=== PATIENT | female | born 1955 | race Caucasian/White ===

== ENCOUNTER 2019-08-23 11:37 | Outpatient (CLI) | payer BC ==
--- NOTE | 2019-08-23 15:30 | MRI ---
MRI OF THE RIGHT SHOULDER WITHOUT CONTRAST: INDICATION: Right shoulder pain. COMPARISON: None. FINDINGS: There is a partial thickness articular surface tear involving the cranial subscapularis with medial s ubluxation of the biceps tendon. There is moderate tendinosis of the long head of the biceps tendon. There is a partial thickness articular surface tear involving the mid to anterior supraspinatus at t he footprint measuring 1.8 x 1.8 cm. There is moderate supraspinatus and infraspinatus tendinosis. T here is a small focus of intertendinus delamination seen involving the posterior supraspinatus at the footprint measuring approximately 0.4 cm on image 13 of series 7. A small amount of fluid is seen i n the subacromial subdeltoid space. Glenohumeral articular surface is normal-appearing. There is so me degenerative signal involving the superior glenoid labrum. There is mild to moderate AC joint ost eoarthrosis. No muscular atrophy is grossly evident. IMPRESSION: 1. Partial thickness articular surface tear involving the mid to anterior supraspinatus at the footp rint. A small focus of delamination is seen involving the posterior supraspinatus at the footprint. There is moderate tendinosis of the supraspinatus and infraspinatus. 2. Partial thickness articular surface tear involving the cranial subscapularis with medial subluxat ion of the biceps tendon. There is moderate tendinosis of the long head of the biceps tendon. 3. Moderate degenerative-type signal involving the superior glenoid labrum and biceps anchor complex . POS: [facility]
== END 2019-08-23 11:38 | disposition home or self-care (01) ==
LOC: SCSMRI 11:37
PROVIDERS: ATTEND Orthopaedic Surgery
DX: M25.511 Pain in right shoulder (principal)

== ENCOUNTER 2020-02-13 05:57 | Outpatient (CLI) | payer BC, OTHER ==
--- NOTE | 2020-02-13 17:17 | RAD ---
CHEST TWO VIEWS: History: Pre-operative evaluation FINDINGS: Heart size is within normal limits. The lungs are clear. IMPRESSION: No significant acute intrathoracic disease. Atherosclerosis of the aorta. POS: [facility]
[2020-02-13 18:13] LABS: #Basophils 0.1 thou/uL (0.0-0.2); #Eosinphils 0.4 thou/uL (0.0-0.7); #Lymphocytes 3.2 thou/uL (1.20-3.40); #Monocytes 0.4 thou/uL (0.11-0.59); #Neutrophils 2.8 thou/uL (1.40-6.50); %Basophils 1.2 % (0.0-1.0); %Eosinophils 6.1 % (0.0-10.0); %Lymphocytes 46.1 % (21.0-51.0); %Monocytes 6.2 % (0.0-10.0); %Neutrophils 40.4 % (42.0-75.0); Hemoglobin 15.2 g/dL (12.0-16.0); Mean Corpuscular HGB CONC 33.1 g/dL (32.0-36.0); Mean Corpuscular Hemoglobin 29.4 pg (27.0-31.0); Mean Corpuscular Volume 88.7 fL (78.0-98.0); Mean Platelet Volume 7.2 fL (7.4-10.4); Platelet Count 281 thou/uL (130-400); RBC Distribution Width 12.2 % (11.5-14.5); Red Blood Cell (RBC) Count 5.16 mill/uL (4.20-5.40); White Blood Cell (WBC) Count 6.8 thou/uL (4.8-10.8)
[2020-02-13 18:22] LABS: Anion Gap 12 mmol/L (10-20); BUN (Urea Nitrogen) 15 mg/dL (9.8-20.1); Calc. Creatinine Clearance 0 mL/min (70-130); Calcium 9.1 mg/dL (7.8-10.44); Carbon Dioxide 29 mmol/L (23-31); Chloride 101 mmol/L (98-107); Estimated GFR-MDRD 70; Glucose 92 mg/dL (80-115); Potassium 3.3 mmol/L (3.5-5.1); Sodium 139 mmol/L (136-145)
[2020-02-13 18:29] LABS: INR-International Normal Ratio 0.9
[2020-02-14 13:12] LABS: SARS-CoV-2 MS2 Positive; SARS-CoV-2 N Gene Negative; SARS-CoV-2 S Gene Negative; SARS-CoV-2 orf1ab Negative
--- NOTE | 2020-02-14 15:54 | EKG ---
Test Reason : Blood Pressure : / mmHG Vent. Rate : 067 BPM Atrial Rate : 067 BPM P-R Int : 154 ms QRS Dur : 090 ms QT Int : 420 ms P-R-T Axes : 070 033 049 degrees QTc Int : 443 ms Normal sinus rhythm Normal ECG No previous ECGs available Confirmed by FRANCIA SETHI, DR. Lowery ([id number]) on 02/14/2020 3:54:28 PM Referred By: HAJA Confirmed By:DR. Sebastián FELDMAN MD
== END 2020-02-13 05:58 | disposition home or self-care (01) ==
LOC: LABBT 05:57
PROVIDERS: ATTEND Orthopaedic Surgery
DX: Z01.818 Encounter for other preprocedural examination (principal); Z11.59 Encounter for screening for other viral diseases; S43.81XA Sprain of other specified parts of right shoulder girdle, initial encounter; M75.111 Incomplete rotator cuff tear or rupture of right shoulder, not specified as traumatic; M67.911 Unspecified disorder of synovium and tendon, right shoulder
CPT/HCPCS: 71046; 80048; 85025; 85610; 87635; 93005; 93010; U0003

== ENCOUNTER 2020-02-16 08:03 | Day surgery (SDC) | payer BC ==
[2020-02-09 10:39] VITALS: BMI 30.2
[2020-02-16] MEDS ORDERED: Midazolam HCl 2 mg/2 ml Vial ONE (08:35)
[2020-02-16] MEDS ORDERED: Fentanyl 100 MCG/2 ML VIAL ONE (08:35)
[2020-02-16] MEDS ORDERED: HYDROcodone/Acetaminophen 10/325 mg Tablet PO PRN ×2 (09:20)
[2020-02-16] MEDS ORDERED: Ropivacaine 0.2% 550 ML 550 ML NERVE BLCK SCH (09:20)
[2020-02-16] MEDS ORDERED: Zolpidem Tartrate 5 MG TAB PO PRN (09:20)
[2020-02-16] MEDS ORDERED: Ondansetron PF 4 MG/2 ML Vial IVP PRN (09:20)
[2020-02-16] MEDS ORDERED: traMADol HCl 50 MG TAB PO PRN ×2 (09:20)
[2020-02-16] MEDS ORDERED: Promethazine HCl 25 MG/ML VIAL IM PRN (09:20)
[2020-02-16] MEDS ORDERED: Fentanyl 100 MCG/2 ML VIAL SLOW IVP PRN (09:21)
[2020-02-16] MEDS ORDERED: Bupivacaine/Epinephrine 0.25% 30 ML VIAL ONE (10:56)
[2020-02-16] MEDS ORDERED: Phenylephrine 10 MG/ML VIAL ONE (11:03)
[2020-02-16] MEDS ORDERED: PROPOFOL 200 MG/20 ML VIAL ONE (11:34)
[2020-02-16] MEDS ORDERED: Ropivacaine 0.5% HCl/PF (150 MG/30 ML VIAL) ONE (11:34)
[2020-02-16] MEDS ORDERED: Ondansetron PF 4 MG/2 ML Vial ONE (11:34)
[2020-02-16] MEDS ORDERED: Ropivacaine 0.2% HCl/PF (40 MG/20 ML VIAL) ONE (11:34)
[2020-02-16] MEDS ORDERED: Dexamethasone 20 MG/5 ML VIAL ONE (11:34)
[2020-02-16] MEDS ORDERED: PHENYLEPHRINE-NS 100 MCG/ML 10 ML SYRINGE ONE (11:34)
[2020-02-16] MEDS ORDERED: Lidocaine 1% PF 5 ML VIAL ONE (11:34)
[2020-02-16] MEDS ORDERED: Glycopyrrolate 0.2 MG/ML 5 ML SYRINGE ONE (11:34)
[2020-02-16] MEDS ORDERED: EPHEDRINE 25 MG/5 ML SYRINGE ONE (11:34)
[2020-02-16] MEDS ORDERED: Rocuronium Bromide 10 MG/ML (10ML VIAL) ONE (11:34)
--- NOTE | 2020-02-17 09:20 | OP ---
DATE OF PROCEDURE: 02/16/2020 PREOPERATIVE DIAGNOSES: 1. Right partial tear of subscapularis tendon with medial subluxation of the biceps and biceps tendinopathy. 2. Tendinosis. 3. High-grade partial tear, supraspinatus tear. POSTOPERATIVE DIAGNOSES: 1. Right partial tear of subscapularis tendon with medial subluxation of the biceps and biceps tendinopathy. 2. Tendinosis. 3. High-grade partial tear, supraspinatus tear. 4. Grade II chondral defect humerus PROCEDURES PERFORMED: 1. Right subscapularis repair, arthroscopic. 2. Right supraspinatus rotator cuff tear. 3. Biceps tenodesis. STATISTICIAN APPLIED: None. ANESTHESIA: Dr. Campos. The patient received a general endotracheal intubation with interscalene block. ESTIMATED BLOOD LOSS: Less than 50 mL. TOURNIQUET TIME: None. IMPLANTS: [employer] Bio[employer]posite PushLock 2.4, a 4.75 SwiveLock x2, and 8 x 19.5 BioComposite tenodesis. ANTIBIOTICS: Ancef 2 g. COMPLICATIONS: None. HISTORY OF PRESENT ILLNESS: Ms. Gomez is a 64-year-old female, presenting with shoulder pain of her right shoulder. The patient had occasionally sharp and throbbing pain, she rated 8/10. She completed therapy. The patient desired to discuss surgical interventions. I discussed that given her tears, I would perform arthroscopic repair of her subscapularis with biceps tenodesis and a supraspinatus tear. I discussed the risks and benefits of surgery to include pain, scar, bleeding, infection, damage to vital structures, decreased range of motion and strength, need for further surgeries, continued pain despite surgical intervention, loss of life or limb. The patient understood the risks and benefits of procedure , elected proceed. DESCRIPTION OF PROCEDURE: Time-out was performed designating the patient's right upper extremity as the operative site based on site, consents, and marking. After time-out, the patient's right upper extremity was prepped and draped in sterile fashion. The posterior working portal was placed intra-articularly. I used a spinal needle to place my anterior portals, to it was high enough for any subscap repair and biceps tenotomy. I made a stab incision, bluntly dissected to visualize inside the joint. There was some full-thickness cartilage injury to the humerus that was noted, kind of 2 to 3 changes with some delamination, which I debrided. The patient had a biceps that was subluxed with tendinopathy and undersurface subscap tear. I tenotomized the biceps, looked at the rest the joint and saw the undersurface tear of the supraspinatus intra-articularly. I cut my biceps, I cleaned a footprint up for placing a 2.4 Bio[employer]posite PushLock. I placed a luggage-handle stitch in the subscap to help pull it up over the top and help put it back in place to near its footprint and after placing a luggage handle stitch I drilled and placed the PushLock in place and stamped it in position. I cleaned up the rest of the shoulder and moved subacromially, cleaned up the bursa, and after cleaning up the bursa, placed a lateral working portal which was aspinal needle. Skin incision with knife and blunt dissection with a cannula. I came down, exposed, and cleaned off all the bursa to expose the shoulder. Being happy with my exposure, I then placed a probe and probed the supraspinatus, in which I found the tear. I blunt dissected into the defect and placed a shaver to create a footprint for stamping down the shoulder. Then placed a 4.[address], passed sutures and tied two horizontal mattress sutures through the cuff and used a lateral row to help with compressing that tendon down to the bone. Cut the knots, I then moved anteriorly. I used shaver to expose the biceps. I placed a spinal needle near the rotator interval and off the anterolateral edge of the acromion about 3 to 4 cm, dissected down through skin with knife and blunt dissection down to the bone. I probed the bone and found my position. With the use of electrocautery, had some fasciculations at the anterior head of the deltoid and therefore, I used only coag and did not have that. I shaved and found my footprint, placed a guidepin, drilled an 8.5 pilot plant operator helper hole and placed an 8 mm Bio-tenodesis screw screwed into position, pulled on the probe and pulled on the screw, which was stable, pulled on the tendon which was stable. We took final pictures of biceps tenodesis, washed, closed with 2-0 nylon. The patient will be on elbow, wrist, and hand motion. Follow up with me in 2 weeks, begin range of motion. Job ID: [id number] [facility]
== END 2020-02-16 15:20 | disposition home or self-care (01) ==
LOC: SDC 08:03
PROVIDERS: ATTEND Orthopaedic Surgery
PROC: 0LQ14ZZ Repair Right Shoulder Tendon, Percutaneous Endoscopic Approach (ICD-10-PCS; principal; 2020-02-16)
PROC: 0RHJ44Z Insertion of Internal Fixation Device into Right Shoulder Joint, Percutaneous Endoscopic Approach (ICD-10-PCS; principal; 2020-02-16)
PROC: 0LS34ZZ Reposition Right Upper Arm Tendon, Percutaneous Endoscopic Approach (ICD-10-PCS; principal; 2020-02-16)
PROC: 3E0T3BZ Introduction of Anesthetic Agent into Peripheral Nerves and Plexi, Percutaneous Approach (ICD-10-PCS; principal; 2020-02-16)
PROC: 0RNJ4ZZ Release Right Shoulder Joint, Percutaneous Endoscopic Approach (ICD-10-PCS; principal; 2020-02-16)
DX: M75.111 Incomplete rotator cuff tear or rupture of right shoulder, not specified as traumatic (principal); M67.911 Unspecified disorder of synovium and tendon, right shoulder; M75.21 Bicipital tendinitis, right shoulder; G89.18 Other acute postprocedural pain; E78.5 Hyperlipidemia, unspecified; E03.9 Hypothyroidism, unspecified; M19.90 Unspecified osteoarthritis, unspecified site; Z79.899 Other long term (current) drug therapy; Z88.2 Allergy status to sulfonamides
CPT/HCPCS: A4306; C1713; J0690; J1100; J2250; J2370; J2405; J2704; J2795; J3010